=== PATIENT | female | born 1945 | race Asian ===

== ENCOUNTER 2024-03-09 20:59 | Inpatient (IN) | payer MEDICARE, OTHER ==
[~2024-03-09] VITALS: Ht 167.6 cm; Wt 81.6 kg
[2024-03-09 22:07] LABS: BASOPHILS # (AUTO) 0.2 K/UL (0.0-0.2); BASOPHILS % (AUTO) 1.8 % (0.0-2.0); EOSINOPHILS # (AUTO) 0.1 K/uL (0.0-0.7); EOSINOPHILS % (AUTO) 0.6 % (0.0-7.0); HEMOGLOBIN 11.9 g/dL (10.9-14.3); LYMPHOCYTES # (AUTO) 2.2 K/uL (0.8-4.8); LYMPHOCYTES % (AUTO) 19.3 % (20.5-51.5); MEAN CORPUSCULAR HEMOGLOBIN 32.3 uug (24.7-32.8); MEAN CORPUSCULAR HGB CONC 34 g/dL (32.3-35.6); MEAN CORPUSCULAR VOLUME 95.2 fL (75.5-95.3); MONOCYTES # (AUTO) 0.7 K/uL (0.1-1.30); MONOCYTES % (AUTO) 5.9 % (0.0-11.0); NEUTROPHILS # (AUTO) 8.2 K/uL (1.8-8.9); NEUTROPHILS % (AUTO) 72.4 % (38.5-71.5); PLATELET COUNT (AUTO) 276 K/uL (179-408); RED BLOOD CELL COUNT(AUTO) 3.67 MIL/uL (3.63-4.92); RED CELL DISTRIBUTION WIDTH 13.7 % (12.3-17.7); WHITE BLOOD COUNT (AUTO) 11.4 K/uL (3.8-11.8)
[2024-03-09 22:15] LABS: DIFFERENTIAL COMMENT 1
[2024-03-09 22:26] LABS: ALANINE AMINOTRANSFERASE 27 U/L (14-59); ALBUMIN 3.2 g/dL (3.4-5.0); ALKALINE PHOSPHATASE 74 U/L (50-136); ASPARTATE AMINOTRANSFERASE 21 U/L (15-37); BILIRUBIN,DIRECT 0.2 mg/dL (0.0-0.2); BILIRUBIN,TOTAL 0.4 mg/dL (0.2-1.0); CALCIUM 8.5 mg/dL (8.5-10.1); CARBON DIOXIDE 29 mmol/L (21-32); CHLORIDE 97 mmol/L (98-107); CREATININE 1.3 mg/dL (0.6-1.3); GLUCOSE 234 mg/dL (74-106); POTASSIUM 3.6 mmol/L (3.5-5.1); SODIUM SERUM 136 mmol/L (136-145); TOTAL PROTEIN, SERUM 7.2 g/dL (6.4-8.2); UREA NITROGEN, BLOOD 30 mg/dL (7-18)
[2024-03-09 22:33] LABS: THYROID STIMULATING HORMONE 2.059 mIU/mL (0.358-3.740)
[2024-03-09 22:51] LABS: ETHANOL < 3 MG/DL (0-10)
[2024-03-09 22:54] LABS: ACETAMINOPHEN < 10.0 ug/mL (10-30)
[2024-03-09] MEDS ORDERED: METF-442 PO (23:20)
[2024-03-09] MEDS ORDERED: ATOR40TA PO (23:20)
[2024-03-09] MEDS ORDERED: CLOP75TA33 PO (23:20)
[2024-03-09] MEDS ORDERED: FLUO20CA42 PO (23:20)
[2024-03-09] MEDS ORDERED: NITR0.4T SL (23:20)
[2024-03-09] MEDS ORDERED: PIRF267C2 PO (23:20)
[2024-03-09] MEDS ORDERED: norco PO (23:20)
[2024-03-09] MEDS ORDERED: ACET-3117 PO (23:20)
[2024-03-09] MEDS ORDERED: FURO20TA4 PO (23:20)
[2024-03-09] MEDS ORDERED: EZET10TA15 PO (23:20)
[2024-03-09] MEDS ORDERED: LOSA1TAB36 PO (23:20)
[2024-03-09] MEDS ORDERED: ASPI81TA31 PO (23:20)
[2024-03-09] MEDS ORDERED: IBUP-2314 PO (23:20)
[2024-03-09] MEDS ORDERED: POLY15DR31 OP (23:20)
[2024-03-09] MEDS ORDERED: IPRA3AMP23 IH (23:20)
[2024-03-10] MEDS ORDERED: LORAZEPAM 0.5 MG TABLET PO PRN (04:15)
[2024-03-10] MEDS ORDERED: TEMAZEPAM 7.5 MG CAPSULE PO PRN (04:15)
[2024-03-10] MEDS: BLOOD SUGAR DIAGNOSTIC 1 EACH STRIP VI ONE (04:15)
[2024-03-10] MEDS ORDERED: HYDROCODONE/APAP 5-325MG TABLET PO PRN (04:30)
[2024-03-10] MEDS ORDERED: ACETAMINOPHEN 325 MG TABLET PO PRN (04:30)
[2024-03-10 04:45] VITALS: BP 150/54; TEMP 97.5; O2SAT 97
[2024-03-10 08:47] VITALS: BP 171/64; TEMP 98.5; O2SAT 98
[2024-03-10] MEDS: CLOPIDOGREL 75 MG TABLET PO SCH (08:48)
[2024-03-10] MEDS: METFORMIN HCL 500 MG TABLET PO SCH (08:48)
[2024-03-10] MEDS: ASPIRIN 81 MG TAB.CHEW PO SCH (08:48)
[2024-03-10] MEDS: FUROSEMIDE 20 MG TABLET PO SCH (08:48)
[2024-03-10] MEDS: BLOOD SUGAR DIAGNOSTIC 1 EACH STRIP VI SCH (09:00)
[2024-03-10] MEDS ORDERED: PIRFENIDONE 267 MG PO SCH (09:00)
[2024-03-10] MEDS ORDERED: DEXTROSE 50% 50 ML DISP.SYRIN IV PRN (09:00)
[2024-03-10] MEDS: LOSARTAN POTASSIUM 50 MG TABLET PO SCH (09:09)
[2024-03-10] MEDS: HYDROCHLOROTHIAZIDE 12.5 MG CAPSULE PO SCH (10:06)
[2024-03-10] MEDS: PIRFENIDONE 267 MG PO SCH (11:29)
[2024-03-10] MEDS: [UNRECOGNIZED DRUG - OTHER] PO SCH (11:29)
[2024-03-10] MEDS: INSULIN REGULAR, HUMAN 1000 UNIT/10 ML VIAL SQ PRN (11:31)
[2024-03-10] MEDS: DULOXETINE 30 MG CAPSULE.DR PO SCH (12:15)
[2024-03-10] MEDS: MAG HYDROX/AL HYDROX/SIMETH 30 ML LIQUID UDC PO PRN (12:15)
[2024-03-10] MEDS ORDERED: ZOLP10TA2 PO (12:58)
[2024-03-10] MEDS ORDERED: LOSA-22 PO (15:31)
[2024-03-10] MEDS ORDERED: INSU3INS5 SQ (15:32)
[2024-03-10 17:16] VITALS: BP 152/60; TEMP 98.1; O2SAT 98
[2024-03-10] MEDS: HYDROCODONE/APAP 5-325MG TABLET PO PRN (18:20)
[2024-03-10 20:00] VITALS: BP 149/52; TEMP 98; O2SAT 93
[2024-03-10] MEDS: INSULIN REGULAR, HUMAN 300 UNITS/3 ML VIAL SQ PRN (20:25)
[2024-03-10] MEDS: ATORVASTATIN 40 MG TABLET PO SCH (20:28)
[2024-03-10] MEDS: POLYVINYL ALCOHOL OPHT DROPS 15 ML BOTTLE EACHEYE SCH (20:28)
[2024-03-10] MEDS: EZETIMIBE 10 MG TABLET PO SCH (20:28)
[2024-03-10] MEDS: TEMAZEPAM 7.5 MG CAPSULE PO PRN (21:48)
[2024-03-11] MEDS: HYDROCHLOROTHIAZIDE 25 MG TABLET PO SCH (08:01)
[2024-03-11] MEDS ORDERED: hydrALAZINE HCL 25 MG TABLET PO PRN (08:30)
[2024-03-11] MEDS: INSULIN GLARGINE,HUM 300 UNITS/3 ML CARTRIDGE SQ SCH (09:00)
[2024-03-11] MEDS: LOSARTAN POTASSIUM 50 MG TABLET PO SCH (09:02)
[2024-03-11 09:23] VITALS: BP 175/69; TEMP 98.4; O2SAT 98
[2024-03-11 17:24] VITALS: BP 143/55; TEMP 98.1; O2SAT 98
[2024-03-11 20:03] VITALS: BP 123/54; TEMP 98; O2SAT 96
[2024-03-11] MEDS: LORAZEPAM 0.5 MG TABLET PO PRN (20:17)
[2024-03-11] MEDS: ACETAMINOPHEN 325 MG TABLET PO PRN (20:18)
[2024-03-11] MEDS: MAGNESIUM HYDROXIDE 30 ML LIQUID UDC PO PRN (20:19)
[2024-03-12 08:05] VITALS: BP 162/47; TEMP 97.3; O2SAT 97
[2024-03-12 11:46] LABS: *BILIRUBIN,URIN NEGATIVE (NEGATIVE); *BLOOD, URINE 2+ (NEGATIVE); *CLARITY,URINE CLEAR (CLEAR); *COLOR,URINE YELLOW (YELLOW); *KETONES,URINE NEGATIVE (NEGATIVE); *PROTEIN,URINE 1+ (NEGATIVE); *UROBILINOGEN,URINE 0.2 E.U./dl (NORMAL); LEUKOCYTE ESTERASE ,URINE TRACE (NEGATIVE); NITRITE, URINE NEGATIVE (NEGATIVE); UGLUCOSE NEGATIVE (NEGATIVE)
[2024-03-12 11:59] LABS: *AMPHETAMINE, URINE NEGATIVE (NEGATIVE); *BARBITURATE, URINE NEGATIVE (NEGATIVE); *BENZODIAZEPINE, URINE NEGATIVE (NEGATIVE); *CANNABINOID, URINE NEGATIVE (NEGATIVE); *COCCAINE, URINE NEGATIVE (NEGATIVE); *OPIATE, URINE NEGATIVE (NEGATIVE); *PHENCYCLIDINE SCREEN,URINE NEGATIVE (NEGATIVE); FENTANYL, URINE NEGATIVE (NEGATIVE)
[2024-03-12 12:17] LABS: BACTERIA,URINE FEW /HPF (NONE SEEN); RBC,URINE 50-80 /HPF (0-3); SQUAMOUS EPITHELIAL CELL,UR FEW /HPF (NONE SEEN); WBC,URINE 20-50 /HPF (0-3)
[2024-03-12] MEDS: DULOXETINE 30 MG CAPSULE.DR PO SCH (12:29)
[2024-03-12 15:55] VITALS: BP 120/47; TEMP 98.2; O2SAT 97
[2024-03-12] MEDS: BISACODYL 5 MG TABLET.DR PO PRN (16:57)
[2024-03-12 20:03] VITALS: BP 146/50; TEMP 98.1; O2SAT 94
[2024-03-12] MEDS: INSULIN GLARGINE,HUM 300 UNITS/3 ML CARTRIDGE SQ SCH (20:23)
[2024-03-13 07:53] VITALS: BP 161/52; TEMP 98.4; O2SAT 94
[2024-03-13] MEDS: DULOXETINE 30 MG CAPSULE.DR PO SCH (12:16)
[2024-03-13 15:07] VITALS: BP 126/74; TEMP 98; O2SAT 96
[2024-03-13 19:44] VITALS: BP 151/51; TEMP 98.1; O2SAT 95
[2024-03-14 08:05] VITALS: BP 154/56; TEMP 98.2; O2SAT 98
[2024-03-14 08:45] VITALS: BP 154/56
== END 2024-03-14 14:15 | disposition home or self-care (01) | DRG 885 ==
LOC: ER 21:08 → GPS 03-10 03:32
PROVIDERS: ADMIT Psychiatry & Neurology Psychosomatic Medicine; ATTEND Internal Medicine
DX: F32.3 Major depressive disorder, single episode, severe with psychotic features (principal); G92.8 Other toxic encephalopathy; T42.6X2D Poisoning by other antiepileptic and sedative-hypnotic drugs, intentional self-harm, subsequent encounter; I25.10 Atherosclerotic heart disease of native coronary artery without angina pectoris; Z79.02 Long term (current) use of antithrombotics/antiplatelets; E78.5 Hyperlipidemia, unspecified; E66.9 Obesity, unspecified; Z68.29 Body mass index [BMI] 29.0-29.9, adult; M54.12 Radiculopathy, cervical region; Z88.0 Allergy status to penicillin; Z88.2 Allergy status to sulfonamides; C67.9 Malignant neoplasm of bladder, unspecified; J84.10 Pulmonary fibrosis, unspecified; E11.9 Type 2 diabetes mellitus without complications; Z79.84 Long term (current) use of oral hypoglycemic drugs; G89.29 Other chronic pain; I10 Essential (primary) hypertension; Z79.899 Other long term (current) drug therapy; R53.1 Weakness
CPT/HCPCS: 36415; 70450; 72131; 76770; 83921; 84443; 85025; G0480; J1815